=== PATIENT | female | born 1990 | race Caucasian/White ===

== ENCOUNTER 2020-12-28 00:25 | Inpatient (IN) | payer OTHER ==
[2020-12-28] MEDS ORDERED: ELECTROLYTE-148 SOLN 1,000 ML IV SCH (00:30)
[2020-12-28] MEDS ORDERED: AMPICILLIN SODIUM 2 GM VIAL IVPB ONE (01:00)
[2020-12-28] MEDS ORDERED: AMPICILLIN SODIUM 2 GM VIAL ONE (01:14)
[2020-12-28] MEDS ORDERED: SODIUM CHLORIDE 100 ML IVPB ONE (01:14)
[2020-12-28 01:44] LABS: BASO % 0.2 % (0-2.0); EOS % 0.6 % (0-4.5); HEMATOCRIT 31.7 % (32.4-45.2); HEMOGLOBIN 10.7 GM/dL (10.7-15.3); LYMPH % 16.4 % (8-40); MCH 29.1 pg (25.7-33.7); MCHC 33.7 g/dl (32.0-36.0); MEAN CELL VOLUME 86.4 fl (80-96); MEAN PLT VOLUME 7.4 fl (7.5-11.1); MONO % 6.9 % (3.8-10.2); NEUT % 75.9 % (42.8-82.8); PLATELET COUNT 204 10^3/uL (134-434); RBC 3.67 M/mm3 (3.60-5.2); RDW 14.1 % (11.6-15.6); WHITE BLOOD COUNT 10.8 K/mm3 (4.0-10.0)
[2020-12-28 01:52] LABS: INR 0.88 (0.83-1.09); PROTHROMBIN TIME (PATIENT) 10.7 SEC (9.7-13.0)
[2020-12-28 01:55] LABS: ACTIVATED PTT 23.9 SECONDS (25.2-36.5)
[2020-12-28] MEDS ORDERED: PROMETHAZINE HCL 25 MG/1 ML VIAL ONE (02:04)
[2020-12-28] MEDS ORDERED: BUTORPHANOL TARTRATE 2 MG/ML VIAL ONE (02:04)
[2020-12-28] MEDS ORDERED: PROMETHAZINE HCL 25 MG/1 ML VIAL IVPB ONE (02:05)
[2020-12-28] MEDS ORDERED: BUTORPHANOL TARTRATE 2 MG/ML VIAL IVPB ONE (02:05)
[2020-12-28 02:06] LABS: CALCIUM 8.1 mg/dL (8.5-10.1)
[2020-12-28 02:07] LABS: BLOOD UREA NITROGEN 8.8 mg/dL (7-18)
[2020-12-28 02:15] LABS: CREATININE 0.6 mg/dL (0.55-1.3)
[2020-12-28 02:36] LABS: SYPHILIS W/ RPR CONF NON-REACTIVE (NONREACTIVE)
[2020-12-28 03:04] LABS: HIV INTERPRETATION NEGATIVE (NEGATIVE)
[2020-12-28] MEDS ORDERED: AMPICILLIN SODIUM 1 GM VIAL ONE (04:50)
[2020-12-28] MEDS ORDERED: FENTANYL/BUPIVACAINE/NS/PF - PCEA - 50 ML DISP.SYRIN EP ONE (04:51)
[2020-12-28] MEDS: AMPICILLIN SODIUM 1 GM VIAL IVPB SCH (05:00)
[2020-12-28] MEDS ORDERED: OXYTOCIN 30 UNITS in 0.9% NS 30 UNIT/500 ML INFUS.BAG IVPB ONE (05:47)
[2020-12-28] MEDS ORDERED: OXYTOCIN 30 UNITS in 0.9% NS 30 UNIT/500 ML INFUS.BAG IVPB SCH (06:00)
[2020-12-28] MEDS ORDERED: DEXTROSE 5%-LACTATED RINGERS 1,000 ML IV SCH (06:00)
[2020-12-28] MEDS ORDERED: OXYTOCIN 20 UNITS in 0.9% NS 20 UNIT/1,000 ML INFUS.BAG IV ONE (06:47)
[2020-12-28] MEDS ORDERED: NALOXONE HCL 0.4 MG/ML VIAL IVPUSH PRN (07:02)
[2020-12-28] MEDS ORDERED: FENTANYL/BUPIVACAINE/NS/PF - PCEA - 50 ML DISP.SYRIN EP SCH (07:15)
[2020-12-28] MEDS ORDERED: oxyCODONE HCL 5 MG TABLET PO PRN (07:26)
[2020-12-28] MEDS ORDERED: WITCH HAZEL 50% (TUCKS) 40 PAD/JAR PAD TP PRN (07:26)
[2020-12-28] MEDS ORDERED: ACETAMINOPHEN 325 MG TABLET (FP) PO PRN (07:26)
[2020-12-28] MEDS ORDERED: BENZOCAINE 20% 57 GM BOTTLE TP PRN (07:26)
[2020-12-28] MEDS ORDERED: METHYLERGONOVINE MALEATE 0.2 MG/1 ML AMP IM PRN (07:26)
[2020-12-28] MEDS ORDERED: IBUPROFEN 600 MG TABLET (FP) PO PRN (07:26)
[2020-12-28] MEDS ORDERED: BISACODYL 10 MG SUPP.RECT RC PRN (07:26)
[2020-12-28] MEDS ORDERED: BENZOCAINE 28 GM HEMORRHOIDAL OINTMENT TP PRN (07:26)
[2020-12-28] MEDS ORDERED: OXYTOCIN 20 UNITS in 0.9% NS 20 UNIT/1,000 ML INFUS.BAG IV SCH (07:30)
[2020-12-28 07:43] VITALS: BMI 25.7
[2020-12-28] MEDS: PRENATAL VITAMINS W/ FOLIC ACID TABLET (FP) PO SCH (09:54)
[2020-12-29] MEDS: AMPICILLIN SODIUM 1 GM VIAL IVPB SCH (07:35)
[2020-12-29] MEDS: PRENATAL VITAMINS W/ FOLIC ACID TABLET (FP) PO SCH (10:08)
[2020-12-29 21:57] VITALS: TEMP 97.6
[2020-12-29] MEDS ORDERED: SENNOSIDES/DOCUSATE COMBO (SENNA PLUS) TABLET (UD) PO PRN (22:00)
[2020-12-30] MEDS: PRENATAL VITAMINS W/ FOLIC ACID TABLET (FP) PO SCH (09:08)
[2020-12-30 09:59] LABS: BASO % 0.4 % (0-2.0); EOS % 1.3 % (0-4.5); HEMATOCRIT 33.6 % (32.4-45.2); HEMOGLOBIN 10.9 GM/dL (10.7-15.3); LYMPH % 27.8 % (8-40); MCH 28.6 pg (25.7-33.7); MCHC 32.4 g/dl (32.0-36.0); MEAN CELL VOLUME 88.1 fl (80-96); MEAN PLT VOLUME 7.7 fl (7.5-11.1); NEUT % 65.5 % (42.8-82.8); PLATELET COUNT 217 10^3/uL (134-434); RBC 3.82 M/mm3 (3.60-5.2); RDW 14.4 % (11.6-15.6); WHITE BLOOD COUNT 8.3 K/mm3 (4.0-10.0)
[2020-12-30 10:20] VITALS: BP 105/71; PULSE 62
== END 2020-12-30 14:10 | disposition home or self-care (01) | DRG 560 ==
LOC: JDEL 00:25 → JLDR 00:30 → J3W 09:10
PROVIDERS: ADMIT Obstetrics & Gynecology; ATTEND Obstetrics & Gynecology
PROC: 10E0XZZ Delivery of Products of Conception, External Approach (ICD-10-PCS; principal; 2020-12-28)
DX: O60.14X0 Preterm labor third trimester with preterm delivery third trimester, not applicable or unspecified (principal); Z3A.36 36 weeks gestation of pregnancy; Z37.0 Single live birth
CPT/HCPCS: 36415; 59409; 80048; 85025; 85461; 85610; 85730; 86780; 86850; 86900; 86901; 87389; C9803; U0003; U0005